=== PATIENT | male | born 1945 | race Two or more races ===

== ENCOUNTER 2021-01-16 09:28 | Emergency (ER) | payer OTHER ==
[~2021-01-16] VITALS: Ht 182.9 cm; Wt 110.7 kg
[2021-01-16 10:52] LABS: Basophils # (auto) 0.1 10 ^3/uL (0-0.2); Mean Corpuscular Hgb Conc. 31.6 g/dL (32.0-36.0)
[2021-01-16 10:56] LABS: Basophils % (auto) 0.9 % (0.0-2.0); Eosinophils # (auto) 0.2 10 ^3/uL (0-0.8); Eosinophils % (auto) 1.6 % (0.0-7.0); Hematocrit 35.2 % (41.0-53.0); Hemoglobin 11.1 g/dL (13.5-17.5); Lymphocytes # (auto) 1.6 10 ^3/uL (0.4-5.4); Lymphocytes % (auto) 17.4 % (10.0-50.0); Mean Corpuscular Hemoglobin 24.1 pg (28.0-32.0); Mean Corpuscular Volume 76.1 fL (80.0-100.0); Monocytes # (auto) 0.6 10 ^3/uL (0-1.3); Neutrophils # (auto) 6.7 10 ^3/uL (1.6-8.6); Neutrophils % (auto) 73.1 % (37.0-80.0); Red Blood Cells 4.63 10^6/uL (4.5-5.90); Red Cell Distribution Width 19.8 % (11.8-14.3); White Blood Cell 9.2 10^3/uL (4.4-10.8)
[2021-01-16 10:58] LABS: Albumin 2.6 g/dL (3.4-5.0); Calcium 9.3 mg/dL (8.5-10.1); Potassium 4.6 mmol/L (3.5-5.1)
[2021-01-16 11:05] LABS: BUN/Creatinine Ratio 15.9; Bilirubin, Total 0.5 mg/dL (0.2-1.0); Total Protein 7.5 g/dL (6.4-8.2)
[2021-01-16 12:37] LABS: Urine Bacteria NONE SEEN /hpf (None Seen); Urine Blood Negative /uL (Negative); Urine Mucus FEW (None Seen); Urine Specific Gravity 1.023 (1.001-1.035); Urine WBC 1 /hpf (0 - 3)
[2021-01-16] MEDS ORDERED: cefTRIAXone 1GM/50ML D5W 50 ML IV ONE (13:30)
[2021-01-16] MEDS ORDERED: CLINDAMYCIN 600MG IV 50 ML IV ONE (13:30)
[2021-01-16 16:52] VITALS: BP 159/90
== END 2021-01-16 16:55 | disposition home or self-care (01) ==
LOC: ER 09:28
DX: I11.0 Hypertensive heart disease with heart failure (principal); I50.9 Heart failure, unspecified; D64.9 Anemia, unspecified; E46 Unspecified protein-calorie malnutrition; E11.9 Type 2 diabetes mellitus without complications; I25.10 Atherosclerotic heart disease of native coronary artery without angina pectoris; Z68.33 Body mass index [BMI] 33.0-33.9, adult
CPT/HCPCS: 36415; 80053; 81001; 82962; 83605; 83880; 84484; 85025; 87040; 93005; 96365; 96366; 96368; 99284; J0696; J3490; 96367

== ENCOUNTER 2021-02-02 15:20 | Inpatient (IN) | payer OTHER ==
[~2021-02-02] VITALS: Ht 170.2 cm; Wt 108.9 kg
[2021-02-02] MEDS ORDERED: FUROSEMIDE 40 MG/4 ML VIAL IV ONE (15:30)
[2021-02-02] MEDS ORDERED: methylPREDNISolone SOD SUCC 125 MG/2 ML VL IV ONE (15:30)
[2021-02-02 16:19] LABS: Basophils # (auto) 0.1 10 ^3/uL (0-0.2); Basophils % (auto) 1.1 % (0.0-2.0); Eosinophils # (auto) 0.1 10 ^3/uL (0-0.8); Eosinophils % (auto) 1.2 % (0.0-7.0); Lymphocytes # (auto) 1.5 10 ^3/uL (0.4-5.4); Monocytes # (auto) 0.7 10 ^3/uL (0-1.3); Neutrophils # (auto) 5.4 10 ^3/uL (1.6-8.6); Red Blood Cells 4.48 10^6/uL (4.5-5.90); White Blood Cell 7.8 10^3/uL (4.4-10.8)
[2021-02-02 16:20] LABS: Hematocrit 33.1 % (41.0-53.0); Hemoglobin 10.3 g/dL (13.5-17.5); Lymphocytes % (auto) 19.4 % (10.0-50.0); Mean Corpuscular Hemoglobin 22.9 pg (28.0-32.0); Mean Corpuscular Volume 73.8 fL (80.0-100.0); Monocytes % (auto) 9.1 % (0.0-12.0); Neutrophils % (auto) 69.2 % (37.0-80.0); Nucleated Red Blood Cells % 0.1 %; Red Cell Distribution Width 20.2 % (11.8-14.3)
[2021-02-02 16:41] LABS: Calcium 8.5 mg/dL (8.5-10.1); Potassium 4.2 mmol/L (3.5-5.1)
[2021-02-02] MEDS ORDERED: HYDROcodone-ACET 10/325MG TAB PO ONE (16:45)
[2021-02-02 16:49] LABS: Albumin 2.3 g/dL (3.4-5.0); BUN/Creatinine Ratio 17.4; Bilirubin, Total 0.4 mg/dL (0.2-1.0); Total Protein 6.6 g/dL (6.4-8.2)
[2021-02-02 17:45] LABS: Urine WBC None Seen /hpf (0 - 3)
[2021-02-02 18:03] LABS: Urine Bacteria NONE SEEN /hpf (None Seen); Urine Blood 1+ /uL (Negative); Urine Specific Gravity 1.014 (1.001-1.035)
[2021-02-03] MEDS ORDERED: ACETAMINOPHEN 325 MG TAB PO PRN (00:45)
[2021-02-03] MEDS ORDERED: ONDANSETRON HCL 4 MG/2 ML VIAL IV PRN (00:45)
[2021-02-03] MEDS ORDERED: AZITHROMYCIN 500MG/ 250ML 250 ML IV ONE (00:45)
[2021-02-03] MEDS ORDERED: TEMAZEPAM 15 MG CAP PO PRN (00:45)
[2021-02-03] MEDS ORDERED: MORPHINE SULFATE INJECTION 2 MG/ML SYRG IV PRN (00:45)
[2021-02-03] MEDS ORDERED: NITROGLYCERIN 0.4 MG SL TAB SL PRN (00:45)
[2021-02-03] MEDS ORDERED: ALBUTEROL SULF 2.5 MG/0.5ML(0.5%) NEB SOLN NEB PRN (00:45)
[2021-02-03] MEDS ORDERED: IOHEXOL 350 MG/ML 100ML IJ ONE (00:57)
[2021-02-03] MEDS ORDERED: DEXTROSE (50%) 50ML SYRG IV PRN (01:15)
[2021-02-03 02:23] LABS: INR 1.26 (0.9-1.15); Partial Thromboplastin Time 30.2 sec (23.6-33.0)
[2021-02-03] MEDS: HYDROcodone-ACET 5/325MG TAB PO PRN ×3 (02:27→18:29)
[2021-02-03] MEDS ORDERED: NORT25CA PO (02:57)
[2021-02-03] MEDS ORDERED: METF-372 PO (02:57)
[2021-02-03] MEDS ORDERED: ATOR-47 PO (02:57)
[2021-02-03] MEDS ORDERED: GLIP10TA9 PO (02:57)
[2021-02-03] MEDS ORDERED: FURO20TA3 PO (02:57)
[2021-02-03] MEDS ORDERED: INSU70IN3 SC (02:57)
[2021-02-03] MEDS ORDERED: CAR3125T OR (02:57)
[2021-02-03] MEDS ORDERED: LOSA25TA38 PO (02:57)
[2021-02-03] MEDS ORDERED: PREG200C19 PO (02:57)
[2021-02-03] MEDS ORDERED: OXY5T PO (02:57)
[2021-02-03] MEDS ORDERED: FAMO20TA10 PO (02:57)
[2021-02-03] MEDS ORDERED: APIX5TAB PO (02:57)
[2021-02-03] MEDS ORDERED: DULO60CA PO (02:57)
[2021-02-03] MEDS ORDERED: FERRTAB18 OR (02:57)
[2021-02-03 03:56] VITALS: BP 120/87
[2021-02-03] MEDS ORDERED: FUROSEMIDE 20 MG/2 ML VIAL IV SCH (06:00)
[2021-02-03] MEDS: ACCU-CHEK COMFORT CURVE STRIP VI SCH ×3 (06:34→18:15)
[2021-02-03] MEDS: InsuLIN REG 1unit/0.01ml Soln (100units/ml) SC SCH ×3 (06:35→18:17)
[2021-02-03 09:00] VITALS: BP 134/61
[2021-02-03] MEDS ORDERED: ENOXAPARIN SOD 40 MG/0.4 ML SYRINGE SC SCH (10:00)
[2021-02-03] MEDS ORDERED: ASPirin 81 mg TAB PO SCH (10:00)
[2021-02-03] MEDS: DULoxetine HCL 30 MG CAP PO SCH (10:54)
[2021-02-03] MEDS: PANTOPRAZOLE 40 MG TAB PO SCH (10:54)
[2021-02-03] MEDS: LOSARTAN POTASSIUM 50 MG TAB PO SCH (10:54)
[2021-02-03] MEDS: CARVEDILOL 3.125 MG TAB PO SCH ×2 (10:54→21:46)
[2021-02-03] MEDS: PREGABALIN 25 MG CAP PO SCH ×2 (10:55→21:48)
[2021-02-03] MEDS: APIXABAN 5 MG TAB PO SCH ×2 (10:55→21:46)
[2021-02-03 13:00] VITALS: BP 116/85
[2021-02-03] MEDS: IPRATROPIUM BROM 0.5 MG/2.5ML INH SOL NEB SCH ×2 (13:40→19:10)
[2021-02-03] MEDS: ALBUTEROL SULF 2.5 MG/0.5ML(0.5%) NEB SOLN NEB SCH ×2 (13:40→19:10)
[2021-02-03 16:09] LABS: Cholesterol 102 mg/dL (< 200); HDL Cholesterol 27 mg/dL (40-59); LDL Cholesterol 64 mg/dL (< 100); Triglycerides 79 mg/dL (< 150)
[2021-02-03] MEDS: NICOTINE 21MG/24 HR TOPICAL PATCH TD SCH (16:47)
[2021-02-03 17:00] VITALS: BP 117/83
[2021-02-03] MEDS: FUROSEMIDE 40 MG/4 ML VIAL IV SCH (18:12)
[2021-02-03] MEDS: TAMSULOSIN HYDROCHLORIDE 0.4 MG CAP PO SCH (18:15)
[2021-02-03] MEDS: INSULIN NPH Isophane (HUMAN) 1unit/0.01ml Susp(100units/ml) SC SCH (18:15)
[2021-02-03] MEDS: POTASSIUM CHL 10 Meq TABLET PO SCH (21:46)
[2021-02-03] MEDS: ATORVASTATIN 20 MG TAB PO SCH (21:47)
[2021-02-03 22:00] VITALS: BP 122/59
[2021-02-03] MEDS ORDERED: AZITHROMYCIN 500MG/ 250ML 250 ML IV SCH (22:00)
[2021-02-04] MEDS: ACCU-CHEK COMFORT CURVE STRIP VI SCH ×5 (00:03→23:43)
[2021-02-04] MEDS: InsuLIN REG 1unit/0.01ml Soln (100units/ml) SC SCH ×5 (00:06→23:44)
[2021-02-04 05:00] VITALS: BP 123/71
[2021-02-04] MEDS: FUROSEMIDE 40 MG/4 ML VIAL IV SCH ×2 (06:14→17:39)
[2021-02-04] MEDS: INSULIN NPH Isophane (HUMAN) 1unit/0.01ml Susp(100units/ml) SC SCH ×2 (06:24→17:40)
[2021-02-04 06:35] LABS: Basophils # (auto) 0.1 10 ^3/uL (0-0.2); Eosinophils # (auto) 0.1 10 ^3/uL (0-0.8); Eosinophils % (auto) 1.1 % (0.0-7.0); Hemoglobin 10.6 g/dL (13.5-17.5); Lymphocytes # (auto) 1.5 10 ^3/uL (0.4-5.4)
[2021-02-04 06:38] LABS: Basophils % (auto) 0.9 % (0.0-2.0); Hematocrit 33.1 % (41.0-53.0); Lymphocytes % (auto) 18.2 % (10.0-50.0); Mean Corpuscular Hemoglobin 23.6 pg (28.0-32.0); Mean Corpuscular Volume 73.6 fL (80.0-100.0); Monocytes # (auto) 0.7 10 ^3/uL (0-1.3); Monocytes % (auto) 9.2 % (0.0-12.0); Neutrophils # (auto) 5.7 10 ^3/uL (1.6-8.6); Neutrophils % (auto) 70.6 % (37.0-80.0); Red Cell Distribution Width 20.9 % (11.8-14.3)
[2021-02-04 06:43] LABS: Albumin 2.7 g/dL (3.4-5.0); Calcium 8.8 mg/dL (8.5-10.1); Potassium 4.4 mmol/L (3.5-5.1)
[2021-02-04 06:44] LABS: BUN/Creatinine Ratio 26.3
[2021-02-04 06:48] LABS: Bilirubin, Total 0.5 mg/dL (0.2-1.0); Total Protein 6.5 g/dL (6.4-8.2)
[2021-02-04] MEDS: IPRATROPIUM BROM 0.5 MG/2.5ML INH SOL NEB SCH ×3 (06:51→18:57)
[2021-02-04] MEDS: ALBUTEROL SULF 2.5 MG/0.5ML(0.5%) NEB SOLN NEB SCH ×3 (06:51→18:57)
[2021-02-04 09:00] VITALS: BP 123/70
[2021-02-04] MEDS: DULoxetine HCL 30 MG CAP PO SCH (09:37)
[2021-02-04] MEDS: LOSARTAN POTASSIUM 50 MG TAB PO SCH (09:38)
[2021-02-04] MEDS: APIXABAN 5 MG TAB PO SCH ×2 (09:38→21:50)
[2021-02-04] MEDS: POTASSIUM CHL 10 Meq TABLET PO SCH ×2 (09:38→21:50)
[2021-02-04] MEDS: HYDROcodone-ACET 5/325MG TAB PO PRN ×2 (09:39→17:46)
[2021-02-04] MEDS: PANTOPRAZOLE 40 MG TAB PO SCH (09:39)
[2021-02-04] MEDS: CARVEDILOL 3.125 MG TAB PO SCH ×2 (09:40→21:49)
[2021-02-04] MEDS: PREGABALIN 25 MG CAP PO SCH ×2 (09:41→21:50)
[2021-02-04] MEDS ORDERED: NICOTINE 21MG/24 HR TOPICAL PATCH TD SCH (10:00)
[2021-02-04] MEDS: NICOTINE 21MG/24 HR TOPICAL PATCH TD SCH (10:00)
[2021-02-04 13:00] VITALS: BP 132/73
[2021-02-04] MEDS ORDERED: CARV6.2551 PO (13:13)
[2021-02-04] MEDS ORDERED: LOSA-69 PO (13:13)
[2021-02-04] MEDS ORDERED: MUPI2OIN2 TOP (13:13)
[2021-02-04] MEDS ORDERED: DULO1CAP5 PO (13:13)
[2021-02-04 17:00] VITALS: BP 114/65
[2021-02-04] MEDS: TAMSULOSIN HYDROCHLORIDE 0.4 MG CAP PO SCH (17:39)
[2021-02-04] MEDS: ATORVASTATIN 20 MG TAB PO SCH (21:50)
[2021-02-04 22:00] VITALS: BP 122/56
[2021-02-05 05:00] VITALS: BP 99/62
[2021-02-05] MEDS: FUROSEMIDE 40 MG/4 ML VIAL IV SCH ×2 (05:54→18:11)
[2021-02-05] MEDS: ACCU-CHEK COMFORT CURVE STRIP VI SCH ×3 (05:55→18:20)
[2021-02-05] MEDS: InsuLIN REG 1unit/0.01ml Soln (100units/ml) SC SCH ×3 (05:55→18:22)
[2021-02-05 06:41] LABS: BUN/Creatinine Ratio 23.3; Calcium 8.8 mg/dL (8.5-10.1)
[2021-02-05] MEDS: INSULIN NPH Isophane (HUMAN) 1unit/0.01ml Susp(100units/ml) SC SCH ×2 (07:01→18:21)
[2021-02-05] MEDS: IPRATROPIUM BROM 0.5 MG/2.5ML INH SOL NEB SCH ×3 (08:41→19:42)
[2021-02-05] MEDS: ALBUTEROL SULF 2.5 MG/0.5ML(0.5%) NEB SOLN NEB SCH ×3 (08:42→19:42)
[2021-02-05 09:00] VITALS: BP 133/69
[2021-02-05] MEDS: PREGABALIN 25 MG CAP PO SCH ×2 (09:31→22:32)
[2021-02-05] MEDS: POTASSIUM CHL 10 Meq TABLET PO SCH ×2 (09:31→22:31)
[2021-02-05] MEDS: LOSARTAN POTASSIUM 50 MG TAB PO SCH (09:31)
[2021-02-05] MEDS: DULoxetine HCL 30 MG CAP PO SCH (09:31)
[2021-02-05] MEDS: APIXABAN 5 MG TAB PO SCH ×2 (09:31→22:30)
[2021-02-05] MEDS: PANTOPRAZOLE 40 MG TAB PO SCH (09:32)
[2021-02-05] MEDS: NICOTINE 21MG/24 HR TOPICAL PATCH TD SCH (09:33)
[2021-02-05] MEDS: CARVEDILOL 3.125 MG TAB PO SCH ×2 (09:33→22:29)
[2021-02-05] MEDS: HYDROcodone-ACET 5/325MG TAB PO PRN ×2 (09:34→16:48)
[2021-02-05] MEDS ORDERED: AZITHROMYCIN 250 MG TAB PO SCH (10:00)
[2021-02-05 13:00] VITALS: BP 121/53
[2021-02-05] MEDS: CEPHALEXIN 250 MG CAP PO SCH ×2 (14:33→22:30)
[2021-02-05 17:13] VITALS: BP 121/53
[2021-02-05] MEDS ORDERED: BISACODYL 10 MG RECT SUPP PR PRN (17:15)
[2021-02-05 17:25] VITALS: BP 118/62
[2021-02-05] MEDS: TAMSULOSIN HYDROCHLORIDE 0.4 MG CAP PO SCH (18:12)
[2021-02-05 18:37] LABS: Magnesium 2.4 mg/dL (1.6-2.6)
[2021-02-05 22:00] VITALS: BP 104/81
[2021-02-05] MEDS: ATORVASTATIN 20 MG TAB PO SCH (22:31)
[2021-02-06] MEDS: ACCU-CHEK COMFORT CURVE STRIP VI SCH ×4 (00:30→17:54)
[2021-02-06] MEDS: InsuLIN REG 1unit/0.01ml Soln (100units/ml) SC SCH ×4 (00:45→17:53)
[2021-02-06 05:00] VITALS: BP 117/85
[2021-02-06 06:09] LABS: BUN/Creatinine Ratio 23.4; Potassium 3.7 mmol/L (3.5-5.1)
[2021-02-06] MEDS: FUROSEMIDE 40 MG/4 ML VIAL IV SCH ×2 (06:55→18:00)
[2021-02-06] MEDS: CEPHALEXIN 250 MG CAP PO SCH ×3 (06:55→21:54)
[2021-02-06] MEDS: IPRATROPIUM BROM 0.5 MG/2.5ML INH SOL NEB SCH ×3 (06:59→19:11)
[2021-02-06] MEDS: ALBUTEROL SULF 2.5 MG/0.5ML(0.5%) NEB SOLN NEB SCH ×3 (06:59→19:11)
[2021-02-06] MEDS: INSULIN NPH Isophane (HUMAN) 1unit/0.01ml Susp(100units/ml) SC SCH ×2 (07:00→17:54)
[2021-02-06 09:00] VITALS: BP 145/69
[2021-02-06] MEDS: POTASSIUM CHL 10 Meq TABLET PO SCH ×2 (09:25→21:54)
[2021-02-06] MEDS: LOSARTAN POTASSIUM 50 MG TAB PO SCH (09:25)
[2021-02-06] MEDS: CARVEDILOL 3.125 MG TAB PO SCH ×2 (09:26→21:52)
[2021-02-06] MEDS: PANTOPRAZOLE 40 MG TAB PO SCH (09:26)
[2021-02-06] MEDS: PREGABALIN 25 MG CAP PO SCH ×2 (09:27→21:55)
[2021-02-06] MEDS: APIXABAN 5 MG TAB PO SCH ×2 (09:27→21:53)
[2021-02-06] MEDS: DULoxetine HCL 30 MG CAP PO SCH (09:28)
[2021-02-06] MEDS: NICOTINE 21MG/24 HR TOPICAL PATCH TD SCH (09:34)
[2021-02-06] MEDS: HYDROcodone-ACET 5/325MG TAB PO PRN ×2 (09:35→17:56)
[2021-02-06 12:46] VITALS: BP 124/89
[2021-02-06 16:55] VITALS: BP 113/72
[2021-02-06] MEDS: TAMSULOSIN HYDROCHLORIDE 0.4 MG CAP PO SCH (17:55)
[2021-02-06] MEDS: ATORVASTATIN 20 MG TAB PO SCH (21:54)
[2021-02-06 22:00] VITALS: BP 120/56
[2021-02-06 22:11] VITALS: BP 120/56
[2021-02-07] MEDS: InsuLIN REG 1unit/0.01ml Soln (100units/ml) SC SCH ×3 (00:40→11:59)
[2021-02-07] MEDS: ACCU-CHEK COMFORT CURVE STRIP VI SCH ×3 (00:40→11:58)
[2021-02-07] MEDS: HYDROcodone-ACET 5/325MG TAB PO PRN ×2 (00:43→10:47)
[2021-02-07 05:00] VITALS: BP 130/64
[2021-02-07] MEDS: IPRATROPIUM BROM 0.5 MG/2.5ML INH SOL NEB SCH ×2 (06:25→11:41)
[2021-02-07] MEDS: ALBUTEROL SULF 2.5 MG/0.5ML(0.5%) NEB SOLN NEB SCH ×2 (06:26→11:41)
[2021-02-07] MEDS: FUROSEMIDE 40 MG/4 ML VIAL IV SCH (06:28)
[2021-02-07] MEDS: CEPHALEXIN 250 MG CAP PO SCH (06:29)
[2021-02-07] MEDS: INSULIN NPH Isophane (HUMAN) 1unit/0.01ml Susp(100units/ml) SC SCH (06:42)
[2021-02-07 06:49] LABS: BUN/Creatinine Ratio 24.8; Calcium 9.1 mg/dL (8.5-10.1); Potassium 3.5 mmol/L (3.5-5.1)
[2021-02-07 09:00] VITALS: BP 110/67
[2021-02-07] MEDS: DULoxetine HCL 30 MG CAP PO SCH (09:37)
[2021-02-07] MEDS: POTASSIUM CHL 10 Meq TABLET PO SCH (09:38)
[2021-02-07] MEDS: PREGABALIN 25 MG CAP PO SCH (09:38)
[2021-02-07] MEDS: PANTOPRAZOLE 40 MG TAB PO SCH (09:38)
[2021-02-07] MEDS: CARVEDILOL 3.125 MG TAB PO SCH (09:39)
[2021-02-07] MEDS: APIXABAN 5 MG TAB PO SCH (09:39)
[2021-02-07] MEDS: LOSARTAN POTASSIUM 50 MG TAB PO SCH (09:40)
[2021-02-07] MEDS: NICOTINE 21MG/24 HR TOPICAL PATCH TD SCH (09:41)
[2021-02-07 11:01] VITALS: BP 108/75
== END 2021-02-07 13:20 | disposition home or self-care (01) | DRG 291 ==
LOC: EDBD 15:20 → ER 15:20 → TELE 02-03 00:45 → TELE-CENTR 02-03 08:41
PROVIDERS: ADMIT Nurse Practitioner; ATTEND Internal Medicine
DX: I11.0 Hypertensive heart disease with heart failure (principal); J96.00 Acute respiratory failure, unspecified whether with hypoxia or hypercapnia; I50.43 Acute on chronic combined systolic (congestive) and diastolic (congestive) heart failure; E44.0 Moderate protein-calorie malnutrition; I47.2 Ventricular tachycardia; L03.115 Cellulitis of right lower limb; L03.116 Cellulitis of left lower limb; L97.909 Non-pressure chronic ulcer of unspecified part of unspecified lower leg with unspecified severity; D64.9 Anemia, unspecified; E11.9 Type 2 diabetes mellitus without complications; E66.9 Obesity, unspecified; F12.90 Cannabis use, unspecified, uncomplicated; G89.29 Other chronic pain; I07.1 Rheumatic tricuspid insufficiency; I27.21 Secondary pulmonary arterial hypertension; I48.91 Unspecified atrial fibrillation; C61 Malignant neoplasm of prostate; Z20.822 Contact with and (suspected) exposure to COVID-19; R97.20 Elevated prostate specific antigen [PSA]; J44.9 Chronic obstructive pulmonary disease, unspecified; I44.7 Left bundle-branch block, unspecified; E78.5 Hyperlipidemia, unspecified; F17.210 Nicotine dependence, cigarettes, uncomplicated; I25.10 Atherosclerotic heart disease of native coronary artery without angina pectoris; Z79.01 Long term (current) use of anticoagulants; Z68.37 Body mass index [BMI] 37.0-37.9, adult; Z79.899 Other long term (current) drug therapy; Z90.49 Acquired absence of other specified parts of digestive tract
CPT/HCPCS: 36415; 36600; 71045; 80048; 80053; 80061; 81001; 82805; 82962; 83036; 83605; 83735; 83880; 84132; 84153; 84484; 85025; 85379; 85610; 85730; 87040; 87426; 93005; 93306; 94640; 96374; 96375; 99291; G0378; J1815